=== PATIENT | female | born 1975 | race Hispanic/Latino ===

== ENCOUNTER → 2016-10-25 | Outpatient (CLI) | payer OTHER ==
[2016-10-25 14:00] LABS: ALBUMIN 3.9 GM/DL (3.2-5.2); ALBUMIN/GLOBULIN RATIO 1.39 (1.00-1.93); ALKALINE PHOSPHATASE 77 U/L (45-117); ALT/SGPT 17 U/L (12-78); ANION GAP 9 MEQ/L (8-16); AST/SGOT 11 U/L (15-37); BILIRUBIN,TOTAL 0.3 MG/DL (0.2-1.0); BLOOD UREA NITROGEN 14 MG/DL (7-18); CALCIUM LEVEL 8.5 MG/DL (8.5-10.1); CARBON DIOXIDE LEVEL 28 MEQ/L (21-32); CHLORIDE LEVEL 107 MEQ/L (98-107); CREATININE FOR GFR 0.76 MG/DL (0.55-1.02); FREE T4 1.06 NG/DL (0.76-1.46); GLOMERULAR FILTRATION RATE > 60.0 (>60); GLUCOSE, FASTING 81 MG/DL (70-105); SODIUM LEVEL 144 MEQ/L (136-145); TOTAL PROTEIN 6.7 GM/DL (6.4-8.2)
== END ==
LOC: M SMT 08:35
PROVIDERS: ATTEND Family Medicine
DX: E03.9 Hypothyroidism, unspecified (principal); I10 Essential (primary) hypertension; E66.09 Other obesity due to excess calories

== ENCOUNTER → 2017-02-19 | Outpatient (CLI) | payer OTHER ==
[2017-02-19 19:18] LABS: FREE T4 1.1 NG/DL (0.76-1.46)
== END ==
LOC: M SMT 14:10
PROVIDERS: ATTEND Family Medicine
DX: E03.9 Hypothyroidism, unspecified (principal)

== ENCOUNTER → 2017-07-14 | Outpatient (CLI) | payer OTHER ==
--- NOTE | 2017-07-14 09:46 | REP ---
Clinical: Chest pain . Comparison: 09/14/2011 . Technique: PA and lateral. Findings: The mediastinum and cardiac silhouette are normal. The lung polo are clear and without acute consolidation, effusion, or pneumothorax. The skeletal structures are intact and normal. Impression: 1. No acute cardiopulmonary process. Signed by Rashaun Huggins MD 07/14/2017 09:38 A
== END ==
LOC: M SMT 09:19
PROVIDERS: ATTEND Family Medicine
DX: R07.9 Chest pain, unspecified (principal)

== ENCOUNTER → 2017-11-03 | Outpatient (CLI) | payer OTHER ==
[2017-11-03 11:53] LABS: HEMATOCRIT 35.7 % (36.0-47.0); HEMOGLOBIN 11.5 g/dl (12.0-16.0); MEAN CORPUSCULAR HGB CONC 32.2 g/dl (32.0-36.5); MEAN CORPUSCULAR VOLUME 90.2 fl (80.0-96.0); PLATELET COUNT, AUTOMATED 298 10^3/uL (150-450); RED BLOOD COUNT 3.96 10^6/uL (4.00-5.40); WHITE BLOOD COUNT 6.6 10^3/uL (4.0-10.0)
[2017-11-03 12:09] LABS: ESTIMATED AVERAGE GLUCOSE 91 MG/DL (60-110); HEMOGLOBIN A1c 4.8 %
[2017-11-03 12:20] LABS: ALBUMIN 3.8 GM/DL (3.2-5.2); ALBUMIN/GLOBULIN RATIO 1.09 (1.00-1.93); ALKALINE PHOSPHATASE 77 U/L (45-117); ALT/SGPT 22 U/L (12-78); ANION GAP 4 MEQ/L (8-16); AST/SGOT 16 U/L (7-37); BILIRUBIN,TOTAL 0.3 MG/DL (0.2-1.0); BLOOD UREA NITROGEN 10 MG/DL (7-18); CALCIUM LEVEL 8.7 MG/DL (8.5-10.1); CARBON DIOXIDE LEVEL 30 MEQ/L (21-32); CHLORIDE LEVEL 107 MEQ/L (98-107); CHOLESTEROL LEVEL 176 MG/DL (<200); CHOLESTEROL RISK RATIO 3.666 (<5); CREATININE FOR GFR 0.71 MG/DL (0.55-1.30); GLOMERULAR FILTRATION RATE > 60.0 (>58); GLUCOSE, FASTING 80 MG/DL (70-100); HDL CHOLESTEROL 48 MG/DL (>40); LDL CHOLESTEROL 102.8 MG/DL (<100); NON-HDL-C 128 MG/DL; POTASSIUM SERUM 4.6 MEQ/L (3.5-5.1); SODIUM LEVEL 141 MEQ/L (136-145); TOTAL PROTEIN 7.3 GM/DL (6.4-8.2); TRIGLYCERIDES LEVEL 126 MG/DL (<150)
[2017-11-04 14:16] LABS: ANTINUCLEAR ANTIBODIES DIRECT Negative (Negative)
== END ==
LOC: M LAB 11:09
DX: Z13.220 Encounter for screening for lipoid disorders (principal); Z13.1 Encounter for screening for diabetes mellitus; R53.82 Chronic fatigue, unspecified

== ENCOUNTER → 2017-11-11 | Outpatient (CLI) | payer OTHER, MEDICAID | LOC: M LAB 11:18 | DX: B37.3 Candidiasis of vulva and vagina (principal) | CPT/HCPCS: 84443 ==

== ENCOUNTER → 2018-03-30 | Outpatient (REF) | payer OTHER, MEDICAID | LOC: M LAB REF 03-31 13:07 | DX: R19.7 Diarrhea, unspecified (principal) ==

== ENCOUNTER → 2018-03-30 | Outpatient (REF) | payer OTHER, MEDICAID | LOC: M LAB REF 17:23 | DX: N23 Unspecified renal colic (principal) ==

== ENCOUNTER → 2018-04-02 | Outpatient (CLI) | payer OTHER, MEDICAID ==
[2018-04-02 17:01] LABS: ALKALINE PHOSPHATASE 76 U/L (45-117); ALT/SGPT 20 U/L (12-78); ANION GAP 8 MEQ/L (8-16); AST/SGOT 10 U/L (7-37); BILIRUBIN,TOTAL 0.3 MG/DL (0.2-1.0); BLOOD UREA NITROGEN 11 MG/DL (7-18); CALCIUM LEVEL 8.7 MG/DL (8.5-10.1); CARBON DIOXIDE LEVEL 28 MEQ/L (21-32); CHLORIDE LEVEL 107 MEQ/L (98-107); CREATININE FOR GFR 0.71 MG/DL (0.55-1.30); GLOMERULAR FILTRATION RATE > 60.0 (>58); GLUCOSE, FASTING 108 MG/DL (70-100); POTASSIUM SERUM 4.2 MEQ/L (3.5-5.1); SODIUM LEVEL 143 MEQ/L (136-145)
[2018-04-02 17:02] LABS: ALBUMIN 3.4 GM/DL (3.2-5.2); ALBUMIN/GLOBULIN RATIO 0.94 (1.00-1.93)
[2018-04-02 17:12] LABS: BASO % 0.5 % (0.0-1.0); EOS # 0.1 10^3/uL (0.0-0.50); HEMOGLOBIN 10.8 g/dl (12.0-15.5); IMMATURE GRANULOCYTE % 0.3 % (0-3.0); LYMPH # 2.4 10^3/uL (1.5-4.5); LYMPH % 32.8 % (24.0-44.0); MEAN CORPUSCULAR HEMOGLOBIN 28.2 pg (27.0-33.0); MEAN CORPUSCULAR HGB CONC 31.8 g/dl (32.0-36.5); MEAN CORPUSCULAR VOLUME 88.8 fl (80.0-96.0); MONO # 0.4 10^3/uL (0.0-0.8); MONO % 5.1 % (0.0-5.0); NEUTROPHILS # 4.4 10^3/uL (1.8-7.7); NEUTROPHILS % 60.3 % (36.0-66.0); PLATELET COUNT, AUTOMATED 300 10^3/uL (150-450); RED BLOOD COUNT 3.83 10^6/uL (4.00-5.40); RED CELL DISTRIBUTION WIDTH 13.7 % (11.5-14.5); WHITE BLOOD COUNT 7.3 10^3/uL (4.0-10.0)
== END ==
LOC: M WUC 12:21
DX: N23 Unspecified renal colic (principal)
CPT/HCPCS: 80053

== ENCOUNTER → 2018-04-07 | Outpatient (CLI) | payer OTHER, MEDICAID ==
[2018-04-07 18:55] LABS: FERRITIN 4 NG/ML (8-252); IRON (FE) 64 UG/DL (50-170); PERCENT SATURATION 16.7 % (13.2-45.0); TOTAL IRON BINDING CAPACITY 383 UG/DL (250-450)
[2018-04-07 18:59] LABS: FOLATE 13.5 NG/ML; VITAMIN B12 LEVEL 422 PG/ML
[2018-04-07 19:19] LABS: ESTIMATED AVERAGE GLUCOSE 94 MG/DL (60-110); HEMOGLOBIN A1c 4.9 %
== END ==
LOC: M SMT 13:30
DX: D64.9 Anemia, unspecified (principal); R73.9 Hyperglycemia, unspecified
CPT/HCPCS: 82746

== ENCOUNTER → 2018-04-13 | Outpatient (REF) | payer OTHER ==
[2018-04-15 14:18] LABS: HPV HYBRID CAPTURE II Negative (Negative)
== END ==
LOC: M LAB REF 17:27
DX: Z12.4 Encounter for screening for malignant neoplasm of cervix (principal)

== ENCOUNTER 2018-06-01 11:48 | Emergency (ER) | payer OTHER ==
[2018-06-01] MEDS: ONDANSETRON 4MG/2ML VIAL (J2405) IV (13:30)
[2018-06-01] MEDS: NS 1,000 ML IV (13:58)
[2018-06-01 14:07] LABS: BASO % 0.3 % (0.0-1.0); EOS # 0.1 10^3/uL (0.0-0.50); EOS % 1.4 % (0.0-3.0); HEMATOCRIT 36.7 % (36.0-47.0); HEMOGLOBIN 12.4 g/dl (12.0-15.5); IMMATURE GRANULOCYTE % 0.3 % (0-3.0); LYMPH # 2.3 10^3/uL (1.5-4.5); MEAN CORPUSCULAR HEMOGLOBIN 29.9 pg (27.0-33.0); MEAN CORPUSCULAR HGB CONC 33.8 g/dl (32.0-36.5); MEAN CORPUSCULAR VOLUME 88.4 fl (80.0-96.0); MONO # 0.6 10^3/uL (0.0-0.8); MONO % 7.2 % (0.0-5.0); NEUTROPHILS # 4.9 10^3/uL (1.8-7.7); NEUTROPHILS % 61.8 % (36.0-66.0); PLATELET COUNT, AUTOMATED 295 10^3/uL (150-450); RED BLOOD COUNT 4.15 10^6/uL (4.00-5.40); RED CELL DISTRIBUTION WIDTH 13.4 % (11.5-14.5); WHITE BLOOD COUNT 7.9 10^3/uL (4.0-10.0)
[2018-06-01 14:40] LABS: ALBUMIN 3.4 GM/DL (3.2-5.2); ALBUMIN/GLOBULIN RATIO 1.03 (1.00-1.93); ALKALINE PHOSPHATASE 79 U/L (45-117); ALT/SGPT 92 U/L (12-78); ANION GAP 9 MEQ/L (8-16); AST/SGOT 72 U/L (7-37); BILIRUBIN,DIRECT 0.1 MG/DL (0.0-0.2); BILIRUBIN,TOTAL 0.4 MG/DL (0.2-1.0); BLOOD UREA NITROGEN 11 MG/DL (7-18); CALCIUM LEVEL 8.7 MG/DL (8.5-10.1); CARBON DIOXIDE LEVEL 28 MEQ/L (21-32); CHLORIDE LEVEL 103 MEQ/L (98-107); CREATININE FOR GFR 0.81 MG/DL (0.55-1.30); GLOMERULAR FILTRATION RATE > 60.0 (>58); GLUCOSE, FASTING 77 MG/DL (70-100); LIPASE 174 U/L (73-393); SODIUM LEVEL 140 MEQ/L (136-145); TOTAL PROTEIN 6.7 GM/DL (6.4-8.2)
== END 2018-06-01 16:43 | disposition home or self-care (01) ==
LOC: M ED 11:48
DX: E86.0 Dehydration (principal); K76.0 Fatty (change of) liver, not elsewhere classified; I10 Essential (primary) hypertension; Z79.899 Other long term (current) drug therapy; Z79.890 Hormone replacement therapy; Z88.8 Allergy status to other drugs, medicaments and biological substances
CPT/HCPCS: J2405

== ENCOUNTER → 2018-06-26 | Outpatient (CLI) | payer OTHER ==
[2018-06-26 13:58] LABS: BASO % 0.5 % (0.0-1.0); EOS % 0.9 % (0.0-3.0); HEMATOCRIT 34.4 % (36.0-47.0); HEMOGLOBIN 11.3 g/dl (12.0-15.5); IMMATURE GRANULOCYTE % 0.2 % (0-3.0); LYMPH # 2.2 10^3/uL (1.5-4.5); MEAN CORPUSCULAR HEMOGLOBIN 29.7 pg (27.0-33.0); MEAN CORPUSCULAR HGB CONC 32.8 g/dl (32.0-36.5); MEAN CORPUSCULAR VOLUME 90.5 fl (80.0-96.0); MONO # 0.3 10^3/uL (0.0-0.8); MONO % 5.8 % (0.0-5.0); NEUTROPHILS # 1.9 10^3/uL (1.8-7.7); NEUTROPHILS % 42.6 % (36.0-66.0); PLATELET COUNT, AUTOMATED 228 10^3/uL (150-450); RED CELL DISTRIBUTION WIDTH 13.8 % (11.5-14.5); WHITE BLOOD COUNT 4.3 10^3/uL (4.0-10.0)
[2018-06-26 14:00] LABS: HEMATOCRIT 34.4 % (36.0-47.0)
[2018-06-26 14:29] LABS: ALBUMIN 3.9 GM/DL (3.2-5.2); ALBUMIN/GLOBULIN RATIO 1.44 (1.00-1.93); ALKALINE PHOSPHATASE 59 U/L (45-117); ALT/SGPT 22 U/L (12-78); ANION GAP 5 MEQ/L (8-16); AST/SGOT 14 U/L (7-37); BILIRUBIN,TOTAL 0.5 MG/DL (0.2-1.0); BLOOD UREA NITROGEN 5 MG/DL (7-18); CALCIUM LEVEL 9.4 MG/DL (8.5-10.1); CARBON DIOXIDE LEVEL 29 MEQ/L (21-32); CHLORIDE LEVEL 108 MEQ/L (98-107); CREATININE FOR GFR 0.67 MG/DL (0.55-1.30); FERRITIN 20 NG/ML (8-252); GLOMERULAR FILTRATION RATE > 60.0 (>58); GLUCOSE, FASTING 90 MG/DL (70-100); IRON (FE) 84 UG/DL (50-170); MAGNESIUM LEVEL 1.9 MG/DL (1.8-2.4); PERCENT SATURATION 34.6 % (13.2-45.0); PHOSPHORUS LEVEL 3.3 MG/DL (2.5-4.9); POTASSIUM SERUM 4.2 MEQ/L (3.5-5.1); SODIUM LEVEL 142 MEQ/L (136-145); TOTAL IRON BINDING CAPACITY 243 UG/DL (250-450); TOTAL PROTEIN 6.6 GM/DL (6.4-8.2)
[2018-06-26 14:33] LABS: TOTAL 25(OH) VITAMIN D 28.4 NG/ML (30.0-100.0)
[2018-06-26 14:52] LABS: VITAMIN B12 LEVEL 1510 PG/ML (247-911)
[2018-06-26 15:27] LABS: ESTIMATED AVERAGE GLUCOSE 108 MG/DL (60-110); HEMOGLOBIN A1c 5.4 %
[2018-06-30 10:41] LABS: PRETREATED FOLATE FOR RBCFOL 12.4 NG/ML; RBC FOLATE 756 NG/ML (280-791)
[2018-07-01 14:14] LABS: VITAMIN B1 LEVEL WHOLE BLOOD 76.2 nmol/L (66.5-200.0)
== END ==
LOC: M LAB 12:49
DX: K91.2 Postsurgical malabsorption, not elsewhere classified (principal); E55.9 Vitamin D deficiency, unspecified; Z98.84 Bariatric surgery status
CPT/HCPCS: 83550

== ENCOUNTER → 2018-09-02 | Outpatient (REF) | payer OTHER ==
[~2018-09-02] MED LIST: DOCU100C16; ENOX40IN3; FAMO1TAB11; FERR140T2; LOSA100T50; ONDA4TAB6; SYNT88TA2
== END ==
LOC: M LAB REF 17:11
PROVIDERS: ATTEND Physician Assistant
DX: N61.1 Abscess of the breast and nipple (principal)

== ENCOUNTER → 2019-04-20 | Outpatient (CLI) | payer OTHER, MEDICAID ==
[2019-04-20 14:13] LABS: BASO % 0.4 % (0.0-1.0); EOS # 0.1 10^3/uL (0.0-0.5); EOS % 0.9 % (0.0-3.0); HEMATOCRIT 29.4 % (36.0-47.0); HEMOGLOBIN 9.1 g/dl (12.0-15.5); LYMPH # 2.2 10^3/uL (1.5-5.0); LYMPH % 40.7 % (24.0-44.0); MEAN CORPUSCULAR HEMOGLOBIN 26.7 pg (27.0-33.0); MEAN CORPUSCULAR VOLUME 86.2 fl (80.0-96.0); MONO # 0.4 10^3/uL (0.0-0.8); MONO % 7.7 % (0.0-5.0); NEUTROPHILS # 2.7 10^3/uL (1.5-8.5); NEUTROPHILS % 50.1 % (36.0-66.0); PLATELET COUNT, AUTOMATED 279 10^3/uL (150-450); RED BLOOD COUNT 3.41 10^6/uL (4.00-5.40); WHITE BLOOD COUNT 5.5 10^3/uL (4.0-10.0)
[2019-04-20 14:29] LABS: ALBUMIN 3.7 GM/DL (3.2-5.2); ALT/SGPT 29 U/L (12-78); BILIRUBIN,TOTAL 0.4 MG/DL (0.2-1.0); BLOOD UREA NITROGEN 12 MG/DL (7-18); CARBON DIOXIDE LEVEL 28 MEQ/L (21-32); CHLORIDE LEVEL 107 MEQ/L (98-107); FOLATE > 24.0 NG/ML; FREE T4 0.81 NG/DL (0.76-1.46); GLOMERULAR FILTRATION RATE > 60.0 (>58); GLUCOSE, FASTING 83 MG/DL (70-100); POTASSIUM SERUM 4.1 MEQ/L (3.5-5.1); SODIUM LEVEL 140 MEQ/L (136-145); TOTAL 25(OH) VITAMIN D 36.1 NG/ML (30.0-100.0); TOTAL PROTEIN 6.8 GM/DL (6.4-8.2); VITAMIN B12 LEVEL 992 PG/ML
== END ==
LOC: M SMT 09:07
PROVIDERS: ATTEND Physician Assistant
DX: Z98.84 Bariatric surgery status (principal); E03.9 Hypothyroidism, unspecified

== ENCOUNTER → 2019-05-28 | Outpatient (CLI) | payer OTHER, MEDICAID ==
[2019-05-28 17:24] LABS: BASO % 0.6 % (0.0-1.0); EOS % 0.6 % (0.0-3.0); HEMATOCRIT 31.6 % (36.0-47.0); HEMOGLOBIN 9.5 g/dl (12.0-15.5); LYMPH # 1.9 10^3/uL (1.5-5.0); LYMPH % 38.7 % (24.0-44.0); MEAN CORPUSCULAR HEMOGLOBIN 24.5 pg (27.0-33.0); MEAN CORPUSCULAR HGB CONC 30.1 g/dl (32.0-36.5); MEAN CORPUSCULAR VOLUME 81.7 fl (80.0-96.0); MONO # 0.4 10^3/uL (0.0-0.8); MONO % 8.3 % (0.0-5.0); NEUTROPHILS # 2.5 10^3/uL (1.5-8.5); NEUTROPHILS % 51.6 % (36.0-66.0); PLATELET COUNT, AUTOMATED 369 10^3/uL (150-450); RED BLOOD COUNT 3.87 10^6/uL (4.00-5.40); WHITE BLOOD COUNT 4.8 10^3/uL (4.0-10.0)
[2019-05-28 17:25] LABS: ALT/SGPT 34 U/L (12-78); BILIRUBIN,TOTAL 0.3 MG/DL (0.2-1.0); BLOOD UREA NITROGEN 15 MG/DL (7-18); CALCIUM LEVEL 8.8 MG/DL (8.5-10.1); CARBON DIOXIDE LEVEL 29 MEQ/L (21-32); CHLORIDE LEVEL 104 MEQ/L (98-107); CREATININE FOR GFR 0.74 MG/DL (0.55-1.30); FERRITIN 3 NG/ML (8-252); GLOMERULAR FILTRATION RATE > 60.0 (>58); GLUCOSE, FASTING 94 MG/DL (70-100); IRON (FE) 15 UG/DL (50-170); MAGNESIUM LEVEL 2.3 MG/DL (1.8-2.4); PERCENT SATURATION 3.2 % (13.2-45.0); PHOSPHORUS LEVEL 3.8 MG/DL (2.5-4.9); POTASSIUM SERUM 4.2 MEQ/L (3.5-5.1); SODIUM LEVEL 139 MEQ/L (136-145); TOTAL IRON BINDING CAPACITY 468 UG/DL (250-450); TOTAL PROTEIN 7.2 GM/DL (6.4-8.2)
[2019-05-28 17:39] LABS: TOTAL 25(OH) VITAMIN D 35.2 NG/ML (30.0-100.0)
[2019-05-28 17:57] LABS: VITAMIN B12 LEVEL 658 PG/ML (247-911)
[2019-05-28 18:50] LABS: HEMOGLOBIN A1c 5.2 %
[2019-05-28 18:52] LABS: HEMATOCRIT 31.6 % (36.0-47.0)
== END ==
LOC: M SMT 13:52
PROVIDERS: ATTEND Physician Assistant
DX: K91.2 Postsurgical malabsorption, not elsewhere classified (principal); Z98.84 Bariatric surgery status; E55.9 Vitamin D deficiency, unspecified

== ENCOUNTER → 2019-06-01 | Outpatient (REF) | payer OTHER, MEDICAID ==
[2019-06-01 13:51] LABS: FOLLICLE STIMULATING HORMONE 7.6 mIU/mL; LUTEINIZING HORMONE 4.4 mIU/mL
[2019-06-03 00:08] LABS: TESTOSTERONE FREE (DIRECT) 0.5 pg/mL (0.0-4.2)
== END ==
LOC: M LAB REF 12:14
PROVIDERS: ATTEND Obstetrics & Gynecology
DX: N92.1 Excessive and frequent menstruation with irregular cycle (principal)

== ENCOUNTER → 2019-06-30 | Outpatient (CLI) | payer OTHER, MEDICAID ==
[2019-06-30 16:37] LABS: BASO % 0.5 % (0.0-1.0); EOS % 0.7 % (0.0-3.0); HEMATOCRIT 26.5 % (36.0-47.0); HEMOGLOBIN 7.7 g/dl (12.0-15.5); LYMPH # 1.8 10^3/uL (1.5-5.0); LYMPH % 43.3 % (24.0-44.0); MEAN CORPUSCULAR HGB CONC 29.1 g/dl (32.0-36.5); MEAN CORPUSCULAR VOLUME 79.1 fl (80.0-96.0); MONO # 0.3 10^3/uL (0.0-0.8); MONO % 7.8 % (0.0-5.0); NEUTROPHILS % 47.5 % (36.0-66.0); PLATELET COUNT, AUTOMATED 375 10^3/uL (150-450); RED BLOOD COUNT 3.35 10^6/uL (4.00-5.40); WHITE BLOOD COUNT 4.2 10^3/uL (4.0-10.0)
[2019-06-30 17:05] LABS: ALBUMIN 3.7 GM/DL (3.2-5.2); ALT/SGPT 35 U/L (12-78); BILIRUBIN,TOTAL 0.3 MG/DL (0.2-1.0); BLOOD UREA NITROGEN 11 MG/DL (7-18); CALCIUM LEVEL 9.1 MG/DL (8.5-10.1); CARBON DIOXIDE LEVEL 29 MEQ/L (21-32); CHLORIDE LEVEL 105 MEQ/L (98-107); CREATININE FOR GFR 0.73 MG/DL (0.55-1.30); FERRITIN 3 NG/ML (8-252); GLOMERULAR FILTRATION RATE > 60.0 (>58); GLUCOSE, FASTING 83 MG/DL (70-100); IRON (FE) 13 UG/DL (50-170); POTASSIUM SERUM 4.1 MEQ/L (3.5-5.1); SODIUM LEVEL 141 MEQ/L (136-145); TOTAL IRON BINDING CAPACITY 439 UG/DL (250-450); TOTAL PROTEIN 7.1 GM/DL (6.4-8.2)
[2019-06-30 17:13] LABS: TOTAL 25(OH) VITAMIN D 30.4 NG/ML (30.0-100.0); VITAMIN B12 LEVEL 998 PG/ML
[2019-06-30 17:14] LABS: FOLATE > 24.0 NG/ML
== END ==
LOC: M LAB 16:06
PROVIDERS: ATTEND Physician Assistant
DX: R55 Syncope and collapse (principal); Z98.84 Bariatric surgery status

== ENCOUNTER 2019-07-01 10:16 | Outpatient (CLI) | payer OTHER, MEDICAID ==
[2019-07-01] VITALS (8 sets, daily range): BP systolic 114–164; BP diastolic 60–88
[2019-07-01] MEDS ORDERED: AMMONIA AROMATIC INHALANT (FLOOR STOCK) As Ordered ONE (15:42)
[2019-07-01] MEDS ORDERED: ONDANSETRON 4 MG ORAL DISINTEGRATING TAB (Q0162 PER 1MG) SL ONE (16:00)
[2019-07-07] MEDS ORDERED: VITA500T PO (11:06)
[2019-07-07] MEDS ORDERED: vitamin b3 PO (11:06)
[2019-07-07] MEDS ORDERED: CYAN500T8 PO (11:06)
[2019-07-07] MEDS ORDERED: MULTCAP PO (11:06)
[2019-07-07] MEDS ORDERED: PAZE1DRO OU (11:06)
[2019-07-07] MEDS ORDERED: CHLO25TA PO (11:06)
[2019-07-07] MEDS ORDERED: SYNT88TA2 PO (11:06)
== END 2019-07-01 17:30 | disposition home or self-care (01) ==
LOC: M INFU 10:16
PROVIDERS: ATTEND Physician Assistant
DX: D64.9 Anemia, unspecified (principal); Z88.8 Allergy status to other drugs, medicaments and biological substances
CPT/HCPCS: 36415; 36430; 86850; 86900; 86901; 86920; P9016; Q0162

== ENCOUNTER 2019-07-09 11:21 | Outpatient (CLI) | payer OTHER, MEDICAID ==
[~2019-07-09] VITALS: Ht 167.6 cm; Wt 70.9 kg
[~2019-07-09 11:21] MED LIST changes: +CHLO25TA PO; +CYAN500T8 PO; +MULTCAP PO; +PAZE1DRO OU; +SYNT88TA2 PO; +VITA500T PO; +vitamin b3 PO
[2019-07-09 11:32] VITALS: BP 150/79
[2019-07-09] MEDS ORDERED: FERRIC CARBOXYMALTOSE INJ 750 MG in NS 250 ML IV ONE (12:00)
[2019-07-09 12:41] VITALS: BP 154/88
[2019-07-09 13:45] VITALS: BP 124/71
[2019-07-09 14:50] VITALS: BP 154/74
[2019-07-09 15:35] VITALS: BP 148/72
== END 2019-07-09 15:35 | disposition home or self-care (01) ==
LOC: M INFU 11:21
PROVIDERS: ATTEND Physician Assistant
DX: D50.9 Iron deficiency anemia, unspecified (principal); Z88.8 Allergy status to other drugs, medicaments and biological substances
CPT/HCPCS: 96365; 96366; J1439

== ENCOUNTER 2019-07-14 09:35 | Day surgery (SDC) | payer OTHER, MEDICAID ==
[~2019-07-14] VITALS: Ht 167.6 cm; Wt 71.2 kg
[2019-07-14] MEDS: DOCUSATE SODIUM 100 MG CAP PO SCH ×2 (09:00→21:19)
[~2019-07-14 09:35] MED LIST changes: +LR 1,000 ML IV ONE; +ceFAZolin SOD 2 GM in IV 1 EA IV ONE
[2019-07-14 10:05] LABS: HEMATOCRIT 39.1 % (36.0-47.0); HEMOGLOBIN 11.5 g/dl (12.0-15.5); MEAN CORPUSCULAR HEMOGLOBIN 24.5 pg (27.0-33.0); MEAN CORPUSCULAR HGB CONC 29.4 g/dl (32.0-36.5); MEAN CORPUSCULAR VOLUME 83.2 fl (80.0-96.0); PLATELET COUNT, AUTOMATED 260 10^3/uL (150-450); WHITE BLOOD COUNT 3.2 10^3/uL (4.0-10.0)
[2019-07-14] MEDS ORDERED: LIDOCAINE 2% INJ 100 MG/5 ML SDV (FOR ANES.) As Ordered ONE ×2 (10:23→10:24)
[2019-07-14] MEDS ORDERED: PROPOFOL 200 MG/20 ML VIAL As Ordered ONE (10:23)
[2019-07-14] MEDS ORDERED: ROCURONIUM BROMIDE 50 MG/5 ML VIAL As Ordered ONE (10:23)
[2019-07-14] MEDS ORDERED: dexameTHASONE 4 MG/ML 1ML VIAL (J1100) As Ordered ONE (10:24)
[2019-07-14] MEDS ORDERED: KETOROLAC 60 MG/2 ML VIAL (J1885) As Ordered ONE (10:24)
[2019-07-14] MEDS ORDERED: ONDANSETRON 4MG/2ML VIAL (J2405) As Ordered ONE (10:24)
[2019-07-14] MEDS ORDERED: SUGAMMADEX SODIUM 500 MG/5 ML VIAL (BRIDION) As Ordered ONE (10:24)
[2019-07-14] MEDS ORDERED: KETAMINE HCL 200 MG/20 ML VIAL As Ordered ONE (10:25)
[2019-07-14] MEDS ORDERED: MIDAZOLAM INJ 2 MG/2 ML VIAL (J2250) As Ordered ONE (10:25)
[2019-07-14] MEDS ORDERED: fentaNYL 250 MCG/5 ML INJECTION (J3010) As Ordered ONE (10:25)
[2019-07-14 10:27] LABS: BLOOD UREA NITROGEN 9 MG/DL (7-18); CARBON DIOXIDE LEVEL 28 MEQ/L (21-32); CHLORIDE LEVEL 108 MEQ/L (98-107); GLOMERULAR FILTRATION RATE > 60.0 (>58); GLUCOSE, FASTING 86 MG/DL (70-100); POTASSIUM SERUM 4.3 MEQ/L (3.5-5.1); SODIUM LEVEL 140 MEQ/L (136-145)
[2019-07-14] MEDS ORDERED: BUPIVACAINE/EPIN 0.25% 30 ML VIAL As Ordered ONE (11:12)
[2019-07-14] MEDS ORDERED: FLUORESCEIN 10% (100MG/ML) 5 ML VIAL As Ordered ONE (11:12)
[2019-07-14] MEDS ORDERED: ACET1TAB16 PO (11:27)
[2019-07-14] MEDS ORDERED: IBUP80TA PO (11:27)
[2019-07-14] MEDS ORDERED: ONDANSETRON 4 MG TAB (S0181) PO PRN (11:30)
[2019-07-14] MEDS ORDERED: ACETAMINOPH W/CODEINE #3 TAB UD PO PRN (11:30)
[2019-07-14] MEDS ORDERED: METHOCARBAMOL 1,000 MG/10 ML VIAL (J2800) As Ordered ONE (12:23)
[2019-07-14] MEDS ORDERED: ACETAMINOPHEN 1000MG 100ML IV BTL (OFIRMEV) (J0131 PER 10MG) As Ordered ONE (12:23)
[2019-07-14] MEDS ORDERED: ONDANSETRON 4MG/2ML VIAL (J2405) IV PRN (13:45)
[2019-07-14] MEDS ORDERED: PERCOCET 5MG/325MG TAB PO PRN (13:45)
[2019-07-14] MEDS ORDERED: fentaNYL 100 MCG/2 ML INJECTION (J3010) IV PRN (13:45)
[2019-07-14] MEDS ORDERED: HYDROMORPHONE HCL 0.5 MG/ 0.5 ML SYRINGE (J1170 PER 1) IV PRN (13:45)
[2019-07-14] MEDS ORDERED: METOCLOPRAMIDE INJ 10MG/2ML VIAL (J2765) IV PRN (13:45)
[2019-07-14] MEDS ORDERED: LR 1,000 ML IV SCH (13:45)
[2019-07-14 15:15] VITALS: BP 155/78
[2019-07-14 15:45] VITALS: BP 140/82
[2019-07-14 16:45] VITALS: BP 130/78
[2019-07-14] MEDS: LR 1,000 ML IV SCH (17:38)
[2019-07-14 17:45] VITALS: BP 138/72
[2019-07-14 18:45] VITALS: BP 137/70
[2019-07-14 19:45] VITALS: BP 133/76
[2019-07-14] MEDS: IBUPROFEN 800 MG TAB PO SCH ×2 (21:00→21:32)
[2019-07-14] MEDS: ACETAMINOPH W/CODEINE #3 TAB UD PO PRN (23:44)
[2019-07-15] VITALS: BP 126/74
[2019-07-15] MEDS: LR 1,000 ML IV SCH (00:15)
[2019-07-15 05:00] VITALS: BP 154/94
[2019-07-15] MEDS: ACETAMINOPH W/CODEINE #3 TAB UD PO PRN (05:40)
[2019-07-15 08:00] VITALS: BP 153/86
[2019-07-15] MEDS: DOCUSATE SODIUM 100 MG CAP PO SCH (09:47)
--- NOTE | 2019-07-17 14:57 | RO ---
DATE OF PROCEDURE: 07/14/2019 Kimberly is a 43-year-old female with extensive history of pelvic pain, dysmenorrhea and excessive menstruation after counseling in the office a decision was made to proceed with robotic-assisted total hysterectomy, removal of both tubes and cystoscopy. PREOPERATIVE DIAGNOSES: 1. Pelvic pain. 2. Excessive menstruation. 3. Dysmenorrhea. POSTOPERATIVE DIAGNOSES: 1. Pelvic pain. 2. Excessive menstruation. 3. Dysmenorrhea. 4. Pelvic adhesions. PROCEDURE: 1. Robotic-assisted total hysterectomy. 2. Removal both tubes. 3. Cystoscopy. 4. Extensive lysis of adhesions. ANESTHESIA: General. SURGEON: Dr. Yen COMPLICATIONS: None. ESTIMATED BLOOD LOSS: 50 mL. FINDINGS: Enlarged uterus sounding to approximately 10 cm in size. Both ovaries and tubes were within normal limits, however, the left ovary was found to be adherent to the pelvic sidewall as well as the bowel. After obtaining informed consent the patient was taken to the operating room where general anesthetic was found to be adequate. She was then draped and prepped usual sterile fashion in the dorsal lithotomy position. At this point a ALIYAH II uterine manipulator was placed. Attention was then turned to the abdomen where a Veress needle was inserted and the abdomen was insufflated with CO2 gas to approximately 3.5 liters. We then placed a 8 mm supraumbilical incision with the camera the trocar was placed under direct visualization. We then placed two left 8 mm lateral ports as well as one 8 mm right lateral port for robotic arm one and two. At this point the patient was placed in steep Trendelenburg. The robot was brought to the patient's right side and the robot was docked in usual fashion. A vessel sealer was placed in arm one and bipolar grasper in arm two. I then re-scrubbing and went to the surgeon console and began the surgery. At this point the fallopian tube was identified the fimbriated end was freed off the ovary and using the vessel sealer the mesosalpinx was transected all way down to the cornual area of the tube. At this point the utero-ovarian ligament was cauterized and cut using the vessel sealer, serial bites were taken to include the round ligament all the way down to the uterine arteries. These were cauterized and cut using the vessel sealer. The anterior leaflet of the broad ligament was dissected to create a bladder flap. Attention turned to the opposite side was done in a similar fashion. The fallopian tube, the round ligament, the uterine arteries were taken down. The anterior leaflet of the broad ligament was dissected to complete the bladder flap. The bladder was pushed completely out of the operative field. The uterine arteries were secured with the bipolar grasper. The vessel sealer was removed and Endo shear placed, anterior posterior colpotomy was performed. At this point the uterus and bilateral fallopian tubes were removed through the vagina. The Endo shear removed, needle delivery truck driver heavy was inserted, 3-0 V-Loc suture inserted through the assist port and the vaginal cuff was closed in running fashion using the 3-0 V-Loc suture. The peritoneum over the vaginal cuff was also closed. At this point the bowel adhesions to the left sidewall was noted. Using the Endo shear and the bipolar grasper at the adhesions were freed with a series of blunt and sharp dissection. Good hemostasis noted. Pelvis copiously irrigated with normal saline and suctioned out. 1 mL of Furacin was given by the anesthesiologist to assist in the cystoscopy. I then re-scrubbed and went to the patient's side, the bladder was retrograde filled with approximately 250 mL of normal saline. Austin catheter was removed. Cystoscopy was performed, bilateral urethral jets noted. No evidence of any bladder injury noted. At this point the Austin catheter was replaced back in the bladder. We then turned our attention to the abdomen where the robotic trocar sites were closed using a 3-0 Vicryl in subcuticular fashion. 0.25% Marcaine was placed for postoperative pain with Dermabond placed. The patient tolerated procedure well. She was then transferred to recovery room in stable condition.
== END 2019-07-15 10:10 | disposition home or self-care (01) ==
LOC: M SDC 09:35 → M PED 14:55 → M SDC 07-15 10:10
PROVIDERS: ATTEND Obstetrics & Gynecology
DX: N94.5 Secondary dysmenorrhea (principal); N92.1 Excessive and frequent menstruation with irregular cycle; K66.0 Peritoneal adhesions (postprocedural) (postinfection); I10 Essential (primary) hypertension; E03.9 Hypothyroidism, unspecified; D64.9 Anemia, unspecified; R06.02 Shortness of breath; G43.909 Migraine, unspecified, not intractable, without status migrainosus; Z88.8 Allergy status to other drugs, medicaments and biological substances; Z79.899 Other long term (current) drug therapy; Z98.84 Bariatric surgery status; Z98.51 Tubal ligation status

== ENCOUNTER 2019-07-18 14:39 | Emergency (ER) | payer OTHER, MEDICAID ==
[~2019-07-18] VITALS: Ht 167.6 cm; Wt 73.4 kg
[~2019-07-18 14:39] MED LIST changes: +ACET1TAB16 PO; +IBUP80TA PO; -LR 1,000 ML IV ONE; -ceFAZolin SOD 2 GM in IV 1 EA IV ONE
[2019-07-18] MEDS ORDERED: diphenhydrAMINE INJ 50MG/ML VIAL (J1200) IV ONE (15:45)
[2019-07-18 15:49] LABS: BASO % 0.4 % (0.0-1.0); EOS # 0.1 10^3/uL (0.0-0.5); EOS % 2.9 % (0.0-3.0); HEMATOCRIT 34.7 % (36.0-47.0); HEMOGLOBIN 10.3 g/dl (12.0-15.5); LYMPH # 1.6 10^3/uL (1.5-5.0); LYMPH % 35.7 % (24.0-44.0); MEAN CORPUSCULAR HEMOGLOBIN 25.2 pg (27.0-33.0); MEAN CORPUSCULAR HGB CONC 29.7 g/dl (32.0-36.5); MEAN CORPUSCULAR VOLUME 84.8 fl (80.0-96.0); MONO # 0.3 10^3/uL (0.0-0.8); MONO % 6.7 % (0.0-5.0); NEUTROPHILS # 2.4 10^3/uL (1.5-8.5); NEUTROPHILS % 54.1 % (36.0-66.0); PLATELET COUNT, AUTOMATED 253 10^3/uL (150-450); RED BLOOD COUNT 4.09 10^6/uL (4.00-5.40); WHITE BLOOD COUNT 4.5 10^3/uL (4.0-10.0)
[2019-07-18 16:09] LABS: BLOOD UREA NITROGEN 11 MG/DL (7-18); CALCIUM LEVEL 8.5 MG/DL (8.5-10.1); CARBON DIOXIDE LEVEL 29 MEQ/L (21-32); CHLORIDE LEVEL 107 MEQ/L (98-107); CREATININE FOR GFR 0.66 MG/DL (0.55-1.30); GLOMERULAR FILTRATION RATE > 60.0 (>58); GLUCOSE, FASTING 84 MG/DL (70-100); POTASSIUM SERUM 3.9 MEQ/L (3.5-5.1); SODIUM LEVEL 142 MEQ/L (136-145)
[2019-07-18] MEDS ORDERED: BENA25CA4 PO (17:37)
[2019-07-18 17:51] VITALS: BP 159/77
== END 2019-07-18 17:54 | disposition home or self-care (01) ==
LOC: M ED 14:39
DX: T81.31XA Disruption of external operation (surgical) wound, not elsewhere classified, initial encounter (principal); Y82.8 Other medical devices associated with adverse incidents; R21 Rash and other nonspecific skin eruption; G89.18 Other acute postprocedural pain; E03.9 Hypothyroidism, unspecified; K21.9 Gastro-esophageal reflux disease without esophagitis; Z79.891 Long term (current) use of opiate analgesic; Z79.899 Other long term (current) drug therapy; Z88.8 Allergy status to other drugs, medicaments and biological substances
CPT/HCPCS: 80048; 81001; 85025; 99284; J1200

== ENCOUNTER 2019-07-19 11:55 | Outpatient (CLI) | payer OTHER, MEDICAID ==
[~2019-07-19] VITALS: Ht 167.6 cm; Wt 70.9 kg
[~2019-07-19 11:55] MED LIST changes: +BENA25CA4 PO
[2019-07-19 12:20] VITALS: BP 149/76
[2019-07-19] MEDS ORDERED: FERRIC CARBOXYMALTOSE INJ 750 MG in NS 250 ML IV ONE (12:30)
[2019-07-19 13:03] VITALS: BP 133/80
[2019-07-19 14:02] VITALS: BP 129/78
[2019-07-19 15:00] VITALS: BP 136/82
[2019-07-19 15:33] VITALS: BP 139/77
[2019-07-19 16:03] VITALS: BP 131/72
== END 2019-07-19 16:05 | disposition home or self-care (01) ==
LOC: M INFU 11:55
PROVIDERS: ATTEND Physician Assistant
DX: D50.9 Iron deficiency anemia, unspecified (principal); Z88.8 Allergy status to other drugs, medicaments and biological substances
CPT/HCPCS: 96365; 96366; J1439

== ENCOUNTER → 2019-07-28 | Outpatient (CLI) | payer OTHER, MEDICAID ==
[2019-07-28 11:48] LABS: BASO % 0.6 % (0.0-1.0); EOS # 0.1 10^3/uL (0.0-0.5); EOS % 1.4 % (0.0-3.0); HEMATOCRIT 37.2 % (36.0-47.0); HEMOGLOBIN 11.3 g/dl (12.0-15.5); LYMPH # 1.9 10^3/uL (1.5-5.0); LYMPH % 30.3 % (24.0-44.0); MEAN CORPUSCULAR HEMOGLOBIN 26.4 pg (27.0-33.0); MEAN CORPUSCULAR HGB CONC 30.4 g/dl (32.0-36.5); MEAN CORPUSCULAR VOLUME 86.9 fl (80.0-96.0); MONO # 0.3 10^3/uL (0.0-0.8); MONO % 5.2 % (0.0-5.0); NEUTROPHILS # 3.9 10^3/uL (1.5-8.5); NEUTROPHILS % 62.3 % (36.0-66.0); PLATELET COUNT, AUTOMATED 305 10^3/uL (150-450); RED BLOOD COUNT 4.28 10^6/uL (4.00-5.40); WHITE BLOOD COUNT 6.3 10^3/uL (4.0-10.0)
[2019-07-28 12:22] LABS: ALBUMIN 3.8 GM/DL (3.2-5.2); ALT/SGPT 44 U/L (12-78); BILIRUBIN,TOTAL 0.5 MG/DL (0.2-1.0); BLOOD UREA NITROGEN 11 MG/DL (7-18); CALCIUM LEVEL 8.5 MG/DL (8.5-10.1); CARBON DIOXIDE LEVEL 27 MEQ/L (21-32); CHLORIDE LEVEL 109 MEQ/L (98-107); FERRITIN 486 NG/ML (8-252); GLOMERULAR FILTRATION RATE > 60.0 (>58); GLUCOSE, FASTING 75 MG/DL (70-100); IRON (FE) 148 UG/DL (50-170); PERCENT SATURATION 53.8 % (13.2-45.0); POTASSIUM SERUM 4.4 MEQ/L (3.5-5.1); SODIUM LEVEL 139 MEQ/L (136-145); TOTAL IRON BINDING CAPACITY 275 UG/DL (250-450); TOTAL PROTEIN 6.8 GM/DL (6.4-8.2)
== END ==
LOC: M LAB 10:33
PROVIDERS: ATTEND Physician Assistant
DX: I10 Essential (primary) hypertension (principal); E61.1 Iron deficiency; E03.9 Hypothyroidism, unspecified

== ENCOUNTER 2024-05-02 15:19 | Emergency (ER) | payer MEDICAID, OTHER ==
[~2024-05-02] VITALS: Ht 167.6 cm; Wt 78.0 kg
[~2024-05-02 15:19] MED LIST changes: -ACET1TAB16 PO; +ACET300T48 PO; +CYAN500T14 PO; -CYAN500T8 PO; +LOSA100T46; -LOSA100T50; +ONDA-282; -ONDA4TAB6; +VITA-243 PO; -VITA500T PO
[2024-05-02] MEDS ORDERED: PANT40TA29 (15:29)
[2024-05-02] MEDS ORDERED: TOPA1TAB (15:29)
[2024-05-02] MEDS ORDERED: OLAN1TAB16 (15:29)
[2024-05-02] MEDS ORDERED: FLUO-365 (15:29)
[2024-05-02] MEDS ORDERED: CYCL-707 (15:29)
[2024-05-02] MEDS ORDERED: NIFE10CA61 (15:29)
[2024-05-02] MEDS ORDERED: FREM225A (15:29)
[2024-05-02] MEDS ORDERED: RIME75TA PO (15:29)
[2024-05-02 18:11] LABS: BASO % 0.1 % (0.0-1.0); EOS # 0.3 10^3/uL (0.0-0.5); EOS % 4.5 % (0.0-3.0); HEMATOCRIT 39.1 % (36.0-47.0); LYMPH # 1.6 10^3/uL (1.5-5.0); LYMPH % 20.7 % (24.0-44.0); MEAN CORPUSCULAR HGB CONC 33.2 g/dl (32.0-36.5); MEAN CORPUSCULAR VOLUME 96.3 fl (80.0-96.0); MONO # 0.4 10^3/uL (0.0-0.8); MONO % 5.6 % (2.0-8.0); NEUTROPHILS # 5.3 10^3/uL (1.5-8.5); NEUTROPHILS % 68.8 % (36.0-66.0); PLATELET COUNT, AUTOMATED 249 10^3/uL (150-450); RED BLOOD COUNT 4.06 10^6/uL (4.00-5.40); WHITE BLOOD COUNT 7.6 10^3/uL (4.0-10.0)
[2024-05-02 18:17] LABS: ERYTHROCYTE SEDIMENTATION RATE 5 mm/hr (0-20)
[2024-05-02 18:50] VITALS: BP 148/85; TEMP 97.4; O2SAT 100
[2024-05-02] MEDS: predniSONE 20 MG TAB PO ONE (19:25)
[2024-05-02] MEDS: diphenhydrAMINE 50MG/ML VIAL IV STA (20:41)
[2024-05-02] MEDS: NS 1,000 ML IV ONE (20:41)
[2024-05-02] MEDS ORDERED: HYDR-3363 PO (21:21)
[2024-05-02] MEDS ORDERED: PRED20TA PO (21:21)
== END 2024-05-02 21:52 | disposition home or self-care (01) ==
LOC: M ED 15:19
DX: L20.9 Atopic dermatitis, unspecified (principal); I10 Essential (primary) hypertension; K21.9 Gastro-esophageal reflux disease without esophagitis; Z88.8 Allergy status to other drugs, medicaments and biological substances; Z79.52 Long term (current) use of systemic steroids; Z79.899 Other long term (current) drug therapy
CPT/HCPCS: 80047; 85025; 85652; 86140; 96374; 99283; J1200; J7512